=== PATIENT | female | born 1975 | race Caucasian/White ===

== ENCOUNTER 2017-08-30 08:51 | Outpatient (RCR) | payer BC | END 2017-09-01 | LOC: OT 08:51 | PROVIDERS: ATTEND Surgery Surgery of the Hand | DX: M25.331 Other instability, right wrist (principal); M25.441 Effusion, right hand; M25.641 Stiffness of right hand, not elsewhere classified ==

== ENCOUNTER 2017-09-06 09:17 | Outpatient (RCR) | payer BC | END 2017-10-02 | LOC: OT 09:17 | PROVIDERS: ATTEND Surgery Surgery of the Hand | DX: M25.331 Other instability, right wrist (principal); M25.441 Effusion, right hand; M25.641 Stiffness of right hand, not elsewhere classified ==

== ENCOUNTER → 2017-11-01 | Outpatient (RCR) | payer BC | LOC: OT 10-04 09:13 | PROVIDERS: ATTEND Surgery Surgery of the Hand | DX: M25.331 Other instability, right wrist (principal) | CPT/HCPCS: 97139 ==

== ENCOUNTER 2017-11-30 09:00 | Outpatient (RCR) | payer BC | END 2017-12-02 | LOC: OT 09:00 | PROVIDERS: ATTEND Surgery Surgery of the Hand | DX: M25.331 Other instability, right wrist (principal) ==

== ENCOUNTER 2017-12-10 12:00 | Outpatient (RCR) | payer BC | END 2018-01-01 | LOC: OT 12:00 | PROVIDERS: ATTEND Surgery Surgery of the Hand | DX: M25.331 Other instability, right wrist (principal) ==

== ENCOUNTER → 2020-07-10 | Outpatient (CLI) | payer OTHER ==
[~2020-07-10] MED LIST: COVID-19 VACC, MRNA(MODERNA)/PF 100 MCG/0.5 ML VIAL IM ONE
== END ==
LOC: VACCPMC 10:00
DX: Z23 Encounter for immunization (principal); Z20.822 Contact with and (suspected) exposure to COVID-19

== ENCOUNTER → 2020-08-09 | Outpatient (CLI) | payer OTHER | END | DRG 951 | LOC: VACCPMC 11:30 | DX: Z23 Encounter for immunization (principal); Z20.822 Contact with and (suspected) exposure to COVID-19 | CPT/HCPCS: 0012A; 91301 ==